=== PATIENT | female | born 2000 | race Caucasian/White ===

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

== ENCOUNTER 2022-02-24 00:13 | Inpatient (IN) ==
[2022-02-24] MEDS ORDERED: Lactated Ringers 1000 ml BAG 1,000 ML IV SCH ×3 (02:00→14:00)
[2022-02-24 02:19] LABS: ABS Basophils 0.1 10^3/ul (0-0.2); ABS Eosinophils 0.3 10^3/ul (0-0.6); ABS Lymphocytes 1.9 10^3/ul (1.0-4.8); ABS Monocytes 1.3 10^3/ul (0-0.8); ABS Neutrophils 12.8 10^3/ul (1.5-7.7); Eosinophil % 1.8 %; Hematocrit 34 % (35-47); Hemoglobin 11.3 g/dL (12.0-16.0); Lymphocyte % 11.8 %; Mean Corpuscular HGB Conc 33 g/dL (31-36); Mean Corpuscular Hemoglobin 31 pg (27-31); Mean Corpuscular Volume 94 fL (80-97); Mean Platelet Volume 10.8 fL (7.4-10.4); Platelet Count 238 10^3/uL (150-450); Red Blood Count 3.65 10^6 /uL (3.70-4.87); Red Cell Distribution Width 14 % (10-15); White Blood Count 16.3 10^3/uL (3.5-10.8)
[2022-02-24 02:24] LABS: Urine Appearance Cloudy; Urine Bilirubin Negative (Negative); Urine Blood Negative (Negative); Urine Color Yellow; Urine Glucose Negative (Negative); Urine Ketones Negative (Negative); Urine Nitrite Negative (Negative); Urine Protein Negative (Negative); Urine Specific Gravity 1.024 (1.002-1.030); Urine Urobilinogen Positive (Negative)
[2022-02-24 02:29] LABS: Urine Bacteria 1+ (Absent); Urine Red Blood Cell 3+(>10/hpf) (Absent); Urine Squamous Epithelial Cell Present (Absent); Urine White Blood Cell 3+(>20/hpf) (Absent)
[2022-02-24 02:48] LABS: Urine Benzodiazepine Screen None Detected (None Detect); Urine Cannabinoids Screen None Detected (None Detect); Urine Opiates Screen None Detected (None Detect)
[2022-02-24 02:55] LABS: Albumin 4.1 g/dL (3.2-5.2); Albumin/Globulin Ratio 1.5 (1-3); Calcium 10.1 mg/dL (8.6-10.3); Globulin 2.8 g/dL (2-4); Potassium 4.2 mmol/L (3.5-5.0); Total Bilirubin 0.4 mg/dL (0.2-1.0); Total Protein 6.9 g/dL (6.4-8.9); Uric Acid 5.1 mg/dL (2.3-6.6); eGFR CKD-EPI 137.2 (>60)
[2022-02-24] MEDS ORDERED: Lidocaine 1% w EPI 1:200,000 SDV 30 ML VIAL ONE (05:21)
[2022-02-24] MEDS ORDERED: OBEPIDURAL (200 ML) 200 ML EPIDURAL ONE (05:21)
[2022-02-24] MEDS ORDERED: Oxytocin in LR 20,000 MILLI.UNIT/1,000 ML BAG IV SCH ×2 (06:15→13:15)
[2022-02-24] MEDS ORDERED: Phenylephrine 40 mcg/mL 10mL (400mcg) SYRINGE IV PUSH PRN ×2 (06:20)
[2022-02-24] MEDS ORDERED: Lactated Ringers 1000 ml BAG 1,000 ML IV ONE (06:20)
[2022-02-24] MEDS ORDERED: Sodium Citrate/Citric Acid LIQ 15 ML UDC PO PRN (06:20)
[2022-02-24] MEDS ORDERED: OBEPIDURAL (200 ML) 200 ML EPIDURAL SCH (07:00)
[2022-02-24 09:29] LABS: Urine Appearance Clear; Urine Bilirubin Negative (Negative); Urine Blood Negative (Negative); Urine Color Yellow; Urine Glucose Negative (Negative); Urine Ketones Negative (Negative); Urine Nitrite Negative (Negative); Urine Protein Negative (Negative); Urine Urobilinogen Negative (Negative)
[2022-02-24 09:38] LABS: Urine Bacteria Absent (Absent); Urine Red Blood Cell Trace(0-2/hpf) (Absent); Urine White Blood Cell Trace(0-5/hpf) (Absent)
[2022-02-24] MEDS ORDERED: Dibucaine 1% OINT 28.35 GM TUBE PR PRN (13:15)
[2022-02-24] MEDS ORDERED: Witch Hazel PAD JAR TOPICAL PRN (13:15)
[2022-02-25 07:24] LABS: ABS Eosinophils 0.3 10^3/ul (0-0.6); ABS Lymphocytes 1.7 10^3/ul (1.0-4.8); ABS Monocytes 0.7 10^3/ul (0-0.8); ABS Neutrophils 8.2 10^3/ul (1.5-7.7); Eosinophil % 2.9 %; Hematocrit 29 % (35-47); Hemoglobin 9.8 g/dL (12.0-16.0); Lymphocyte % 15.6 %; Mean Corpuscular HGB Conc 33 g/dL (31-36); Mean Corpuscular Hemoglobin 32 pg (27-31); Mean Corpuscular Volume 96 fL (80-97); Mean Platelet Volume 10.2 fL (7.4-10.4); Platelet Count 162 10^3/uL (150-450); Red Blood Count 3.07 10^6 /uL (3.70-4.87); Red Cell Distribution Width 14 % (10-15); White Blood Count 10.9 10^3/uL (3.5-10.8)
[2022-02-26] MEDS: Sulfamethox/Trimethoprim DS TAB 800/160 mg PO SCH (15:37)
[2022-02-27 07:38] VITALS: BP 125/76
[2022-02-27] MEDS: Sulfamethox/Trimethoprim DS TAB 800/160 mg PO SCH (09:33)
[2022-02-27 12:42] LABS: Hb A 97.7 % (95.8-98.0); Hb A2 2.3 % (2.0-3.3)
== END 2022-02-27 17:34 | disposition home or self-care (01) | DRG 560 ==
LOC: MCHOBOUT 00:13 → MCHOB 01:07
PROVIDERS: ADMIT Midwife; ATTEND Midwife

== ENCOUNTER 2023-08-24 10:06 | Inpatient (IN) ==
[2023-08-24] MEDS ORDERED: Buffered Lidocaine 1% SYRIN 1 ml INTRADERM ONE (11:14)
[2023-08-24] MEDS ORDERED: Prochlorperazine 5 mg/ml 2 ml VIAL (10 mg) IV PRN (11:14)
[2023-08-24] MEDS ORDERED: Lidocaine 1% VIAL 10 MG/ML 30 ML VIAL INJ PRN (11:14)
[2023-08-24] MEDS: miSOPROStol 100 mcg TAB PO ONE (11:55)
[2023-08-24 12:29] LABS: Urine Benzodiazepine Screen None Detected (None Detect); Urine Cannabinoids Screen None Detected (None Detect); Urine Opiates Screen None Detected (None Detect)
[2023-08-24 16:59] LABS: ABS Basophils 0.1 10^3/uL (0.0-0.1); ABS Eosinophils 0.1 10^3/uL (0.0-0.5); ABS Lymphocytes 1.7 10^3/uL (1.0-4.8); ABS Monocytes 0.6 10^3/uL (0.0-0.9); ABS Neutrophils 7.7 10^3/uL (1.5-7.6); ABS Nucleated RBC 0.01 10^3/ul; Eosinophil % 0.7 %; Hemoglobin 10.9 g/dL (11.5-14.3); Lymphocyte % 17.1 %; Mean Corpuscular Hemoglobin 32.1 pg (27-33); Mean Corpuscular Volume 94.4 fL (80-97); Mean Platelet Volume 11.1 fL (7.5-11.2); Nucleated Red Blood Cells % 0.1 %/100WBC (0.0-0.8); Platelet Count 170 10^3/uL (150-450); Red Blood Count 3.39 10^6/uL (3.63-4.92); Red Cell Distribution Width 13.2 % (12-17); White Blood Count 10.2 10^3/uL (3.8-11.8)
[2023-08-24] MEDS: Oxytocin in LR 20,000 MILLI.UNIT/1,000 ML BAG IV SCH (17:13)
[2023-08-24] MEDS: Lactated Ringers 1000 ml BAG 1,000 ML IV SCH (17:13)
[2023-08-24] MEDS ORDERED: Lidocaine 1.5% EPI 1:200,000 30 ML SDV ONE (23:07)
[2023-08-24] MEDS: OBEPIDURAL (200 ML) 200 ML EPIDURAL ONE (23:35)
[2023-08-24] MEDS: Lactated Ringers 1000 ml BAG 1,000 ML IV ONE (23:41)
[2023-08-24] MEDS ORDERED: Phenylephrine 40 mcg/mL 10mL (400mcg) SYRINGE IV PUSH PRN ×2 (23:41)
[2023-08-24] MEDS ORDERED: Sodium Citrate/Citric Acid LIQ 15 ML UDC PO PRN (23:41)
[2023-08-24] MEDS ORDERED: OBEPIDURAL (200 ML) 200 ML EPIDURAL SCH (23:45)
[2023-08-24] MEDS ORDERED: Ondansetron 4 mg VIAL 2 MG/ML 2 ml VIAL IV PRN (23:56)
[2023-08-25 01:03] LABS: Urine Appearance Clear; Urine Bilirubin Negative (Negative); Urine Blood Trace (Negative); Urine Color Yellow; Urine Glucose Negative (Negative); Urine Ketones 1+ (Negative); Urine Nitrite Negative (Negative); Urine Protein Negative (Negative); Urine Specific Gravity 1.028 (1.002-1.030); Urine Urobilinogen Negative (Negative); Urine pH 6.5 (5.0-8.0)
[2023-08-25] MEDS: Lactated Ringers 1000 ml BAG 1,000 ML IV ONE (05:34)
[2023-08-25] MEDS: Lactated Ringers 1000 ml BAG 1,000 ML IV SCH (05:35)
[2023-08-25] MEDS ORDERED: Glycerin ADULT 2.4 gm SUPP PR PRN (05:56)
[2023-08-25] MEDS: Oxytocin in LR 20,000 MILLI.UNIT/1,000 ML BAG IV SCH (06:00)
[2023-08-25] MEDS ORDERED: Lactated Ringers 1000 ml BAG 1,000 ML IV SCH (06:00)
[2023-08-25] MEDS: Witch Hazel PAD JAR TOPICAL PRN (08:01)
[2023-08-25] MEDS: Dibucaine 1% OINT 28.35 GM TUBE PR PRN (08:01)
[2023-08-26 08:04] LABS: ABS Eosinophils 0.1 10^3/uL (0.0-0.5); ABS Lymphocytes 1.8 10^3/uL (1.0-4.8); ABS Monocytes 0.6 10^3/uL (0.0-0.9); ABS Neutrophils 6.1 10^3/uL (1.5-7.6); ABS Nucleated RBC 0.01 10^3/ul; Eosinophil % 1.7 %; Hematocrit 32.3 % (35-45); Lymphocyte % 20.9 %; Mean Corpuscular Hemoglobin 32.1 pg (27-33); Mean Corpuscular Volume 94.4 fL (80-97); Nucleated Red Blood Cells % 0.1 %/100WBC (0.0-0.8); Platelet Count 135 10^3/uL (150-450); Red Blood Count 3.42 10^6/uL (3.63-4.92); Red Cell Distribution Width 13.4 % (12-17); White Blood Count 8.7 10^3/uL (3.8-11.8)
[2023-08-26 08:36] VITALS: BP 121/65
== END 2023-08-26 12:55 | disposition home or self-care (01) | DRG 560 ==
LOC: MCHOBOUT 10:06 → MCHOB 10:48
PROVIDERS: ADMIT Advanced Practice Midwife; ATTEND Advanced Practice Midwife